=== PATIENT | male | born 1960 | race American Indian/Alaskan Native ===

== ENCOUNTER 2016-08-07 23:35 | Emergency (ER) | payer MEDICAID ==
[2016-08-07 23:43] VITALS: TEMP 98.7
[2016-08-07 23:44] VITALS: BMI 22.7
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
--- NOTE | 2016-08-08 00:40 | CT ---
EXAM: CT Head Without Intravenous Contrast CLINICAL HISTORY: 56 years old, male; Pain; Headache; Headache not specified TECHNIQUE: Axial computed tomography images of the head/brain without intravenous contrast. This CT exam was performed using one or more of the following dose reduction techniques: automated exposure control, adjustment of the mA and/or kV according to patient size, and/or use of iterative reconstruction technique. COMPARISON: No relevant prior studies available. FINDINGS: Brain: No acute intracranial hemorrhage. No significant white matter disease. No edema. Calcifications within the basal ganglia. Ventricles: No significant ventriculomegaly. Bones: No acute displaced fracture. Sinuses: Unremarkable as visualized. No acute sinusitis. Mastoid air cells: Unremarkable as visualized. No mastoid effusion. IMPRESSION: No acute intracranial hemorrhage, or suspicious mass effect. Basal ganglia mineralization is prominent considering the patient's age. Still, this may be physiologic. Other considerations are prior infection, thyroid/parathyroid disease or inherited metabolic conditions.
[2016-08-08 02:26] VITALS: BP 164/98; PULSE 73; RESP 18; O2SAT 95
--- NOTE | 2016-08-08 10:14 | CARD ---
APPROVED REPORT EKG Measurement Heart [id number] <Conclusion> Normal sinus rhythm Right bundle branch block Minimal voltage criteria for LVH, may be normal variant Abnormal ECG
== END 2016-08-08 03:20 | disposition home or self-care (01) ==
LOC: ED 23:35
DX: R51 Headache (principal); F43.9 Reaction to severe stress, unspecified